=== PATIENT | female | born 1985 | race American Indian/Alaskan Native ===

== ENCOUNTER 2017-06-30 09:43 | Emergency (ER) | payer MEDICAID ==
[2017-06-30 10:30] VITALS: BP 136/79
--- NOTE | 2017-06-30 10:37 | Emergency Department Report ---
Chief Complaint: Medical Clearance Stated Complaint: POST OP LEAKING/SWELLING Time Seen by Provider: 06/30/17 10:33 - HPI History of Present Illness: Patient states she had on 06/12/17, and clayton removed on 06/18 and about 4-5 days later started to notice some drainage from incision site everyday ; has some swelling and pain over incision site also; denies fevers and N/V - ROS Review of Systems: Negative except for those stated in HPI - Exam Vital Signs: Vital Signs 06/30/17 10:22 Temperature 99.0 F Pulse Rate 105 H Respiratory 20 Rate Blood Pressure 136/79 O2 Sat by Pulse 98 Oximetry Physical Exam: NAD Abdomen - healing incision over pelvic area, area of edema and erythema over mid incision which is TTP, no active bleeding or drainage MSE screening note: Focused history and physical exam performed. Due to findings the following was ordered: bloodwork and wound culture Patient to be seen in Main ED by provider ED Disposition for MSE Condition: Stable
[2017-06-30 11:03] LABS: Basophils % (Auto) 1.1 % (0.0-1.8); Eosinophils % (Auto) 1.6 % (0.0-4.3); Hematocrit 31.8 % (30.3-42.9); Hemoglobin 10.2 gm/dl (10.1-14.3); Mean Corpuscular HGB Conc 32 % (30-34); Mean Corpuscular Hemoglobin 26 pg (28-32); Mean Corpuscular Volume 82 fl (79-97); Platelet Count 823 K/mm3 (140-440); Red Blood Count 3.86 M/mm3 (3.65-5.03); Red Cell Distribution Width 16.4 % (13.2-15.2)
[2017-06-30 11:22] LABS: Chloride 101.8 mmol/L (98-107); Potassium 3.9 mmol/L (3.6-5.0); Sodium 140 mmol/L (137-145)
[2017-06-30 11:35] LABS: BUN/Creatinine Ratio 18; Blood Urea Nitrogen 9 mg/dL (7-17); Calcium 9.2 mg/dL (8.4-10.2); Glucose 91 mg/dL (65-100)
[2017-06-30 11:47] LABS: Anion Gap 40 mmol/L
[2017-06-30 11:48] LABS: Carbon Dioxide 21 mmol/L (22-30)
[2017-06-30 13:24] LABS: Bilirubin,Urine NEG (Negative); Blood,Urine MOD (Negative); Ketones,Urine NEG (Negative); Leukocyte Esterase,Urine LG (Negative); Mucus,Urine 2+ /HPF; Nitrite,Urine NEG (Negative); Protein,Urine <15 mg/dL mg/dL (Negative)
== END 2017-06-30 13:35 | disposition left against medical advice (07) ==
LOC: ED 09:43
DX: Z53.21 Procedure and treatment not carried out due to patient leaving prior to being seen by health care provider (principal)
CPT/HCPCS: 36415; 80048; 81001; 85025

== ENCOUNTER 2017-07-01 09:13 | Emergency (ER) | payer MEDICAID ==
[2017-07-01 09:34] VITALS: BP 135/77
--- NOTE | 2017-07-01 09:48 | Emergency Department Report ---
- General Chief Complaint: Laceration/Recheck/Suture Stated Complaint: ABDOMINAL PAIN Time Seen by Provider: 07/01/17 09:43 Source: patient Mode of arrival: Ambulatory Limitations: No Limitations - History of Present Illness Initial Comments: Patient requesting evaluation of a possible infected scar from section 06/12/2017. She reports the clayton were removed 06/18/17, however she has experienced increase tenderness in the pelvic area Onset/Timin -: week(s) Location: other (pelvic) Place: home Patient Tetanus UTD: No Associated Symptoms: pain. denies: loss of feeling/numbness, suspect foreign body present, unable to move injured part, weakness followed by dizziness, nausea/vomiting, fever Treatments Prior to Arrival: other (pain medication) - Related Data Previous Rx's Medication Instructions Recorded Last Taken Type Nitrofurantoin Monohyd/M-Cryst 100 mg PO BID #14 capsule 07/01/17 Unknown Rx [Macrobid 100 mg Capsule] Allergies Allergy/AdvReac Type Severity Reaction Status Date / Time No Known Allergies Allergy Verified 06/12/17 12:29 ED Review of Systems ROS: Stated complaint: ABDOMINAL PAIN Other details as noted in HPI Constitutional: denies: chills, diaphoresis, fever, malaise, weakness Respiratory: denies: cough, orthopnea, shortness of breath, SOB with exertion, SOB at rest, stridor, wheezing Cardiovascular: denies: chest pain, palpitations, dyspnea on exertion, orthopnea , edema, syncope, paroxysmal nocturnal dyspnea Gastrointestinal: denies: abdominal pain, nausea, vomiting, diarrhea, constipation, hematemesis Genitourinary: dysuria, other (pelvic scar). denies: urgency, frequency, hematuria, discharge, abnormal menses, dyspareunia Skin: change in color (pelvic incision). denies: rash, lesions, change in hair/ nails, pruritus Neurological: denies: headache, weakness, numbness, paresthesias, confusion, abnormal gait, vertigo Psychiatric: denies: anxiety, depression Hematological/Lymphatic: denies: easy bleeding, easy bruising, swollen glands ED Past Medical Hx - Past Medical History Previous Medical History?: No Hx Hypertension: No Hx Congestive Heart Failure: No Hx Diabetes: No Hx Deep Vein Thrombosis: No Hx Renal Disease: No Hx Sickle Cell Disease: No Hx Seizures: No Hx Asthma: No Hx COPD: No Hx HIV: No - Surgical History Past Surgical History?: No - Social History Smoking Status: Never Smoker Substance Use Type: None - Medications Home Medications: Home Medications Medication Instructions Recorded Confirmed Last Taken Type Nitrofurantoin Monohyd/M-Cryst 100 mg PO BID #14 capsule 07/01/17 Unknown Rx [Macrobid 100 mg Capsule] ED Physical Exam - General Limitations: No Limitations General appearance: alert, in no apparent distress - Head Head exam: Present: atraumatic, normocephalic, normal inspection - Eye Eye exam: Present: normal appearance - ENT ENT exam: Present: normal exam, normal orophraynx, mucous membranes moist. Absent: mucous membranes dry - Neck Neck exam: Present: normal inspection, full ROM. Absent: tenderness, meningismus, lymphadenopathy, thyromegaly - Respiratory Respiratory exam: Present: normal lung sounds bilaterally. Absent: respiratory distress, wheezes, rales, rhonchi, stridor, chest wall tenderness, accessory muscle use, decreased breath sounds - Cardiovascular Cardiovascular Exam: Present: regular rate, normal rhythm, normal heart sounds. Absent: bradycardia, tachycardia, irregular rhythm, systolic murmur, diastolic murmur - GI/Abdominal GI/Abdominal exam: Present: soft, tenderness (suprapubic), normal bowel sounds. Absent: distended, guarding, rebound, rigid - Extremities Exam Extremities exam: Present: normal inspection, full ROM, normal capillary refill. Absent: tenderness, pedal edema, joint swelling, calf tenderness - Back Exam Back exam: Present: normal inspection, full ROM. Absent: tenderness, CVA tenderness (R), CVA tenderness (L), muscle spasm - Neurological Exam Neurological exam: Present: alert, oriented X3, CN II-XII intact, normal gait, reflexes normal. Absent: motor sensory deficit - Psychiatric Psychiatric exam: Present: normal affect, normal mood. Absent: depressed, agitated - Skin Skin exam: Present: warm, dry, intact, normal color, other (3 cm horizontal pelvic incision with eschar and edges well approximate. No erythema, fluctuance , induration or drainage noted) ED Course Vital Signs 07/01/17 09:31 Temperature 98.3 F Pulse Rate 93 H Respiratory 18 Rate Blood Pressure 135/77 O2 Sat by Pulse 98 Oximetry - Reevaluation(s) Reevaluation #1: 07/01/17 11:28 laboratories ordered ED Medical Decision Making - Lab Data Lab Results 07/01/17 Range/Units 09:49 Urine Color Yellow (Yellow) Urine Turbidity Clear (Clear) Urine pH 5.0 (5.0-7.0) Ur Specific [place] 1.025 (1.003-1.030) Urine Protein 30 mg/dl (Negative) mg/dL Urine Glucose (UA) Neg (Negative) mg/dL Urine Ketones Neg (Negative) mg/dL Urine Blood Lg (Negative) Urine Nitrite Neg (Negative) Ur Reducing Substances Not Reportable Urine Bilirubin Neg (Negative) Urine Ictotest Not Reportable Urine Urobilinogen 2.0 (<2.0) mg/dL Ur Leukocyte Esterase Lg (Negative) Urine WBC (Auto) 159.0 H (0.0-6.0) /HPF Urine RBC (Auto) > 182.0 (0.0-6.0) /HPF U Epithel Cells (Auto) 11.0 (0-13.0) /HPF Urine Bacteria (Auto) 1+ (Negative) /HPF Urine Mucus 2+ /HPF Urine HCG, Qual Negative (Negative) Vital Signs 07/01/17 09:31 Temperature 98.3 F Pulse Rate 93 H Respiratory 18 Rate Blood Pressure 135/77 O2 Sat by Pulse 98 Oximetry - Medical Decision Making During the course of ED, all other systems are unremarkable except for documentation in HPI. Patient's urinalysis was positive for leukocytes, therefore she was prescribed Macrobid and instructed to follow up with her Collection Support Specialist. She verbalized understanding - Differential Diagnosis Urinary Tract Infection, Scar Infection Critical care attestation.: If time is entered above; I have spent that time in minutes in the direct care of this critically ill patient, excluding procedure time. ED Disposition Clinical Impression: Urinary tract infection Qualifiers: Urinary tract infection type: site unspecified Hematuria presence: without hematuria Qualified Code(s): N39.0 - Urinary tract infection, site not specified Disposition: TO HOME OR SELFCARE Is pt being admited?: No Does the pt Need Aspirin: No Condition: Stable Instructions: Urinary Tract Infection in Women (ED) Additional Instructions: Take medication as directed. Follow up with your Collection Support Specialist this week. Keep the wound clean with antibacterial soap and dry Prescriptions: Nitrofurantoin Monohyd/M-Cryst [Macrobid 100 mg Capsule] 100 mg PO BID #14 capsule Referrals: PRIMARY CARE, [Primary Care Provider] - 3-5 Days MISHA DUNCAN DO [Staff Physician] - 3-5 Days RAMONA MORALES CNM [Advanced Practice Nurse] - 3-5 Days Forms: Work/School Release Form(ED) Time of Disposition: 10:43
[2017-07-01 10:19] LABS: Bacteria,Urine 1+ /HPF (Negative); Bilirubin,Urine NEG (Negative); Blood,Urine LG (Negative); Ketones,Urine NEG (Negative); Leukocyte Esterase,Urine LG (Negative); Mucus,Urine 2+ /HPF; Nitrite,Urine NEG (Negative)
[2017-07-01 10:21] LABS: RBC,Urine > 182.0 /HPF (0.0-6.0)
== END 2017-07-01 10:54 | disposition home or self-care (01) ==
LOC: ED 09:13
DX: N39.0 Urinary tract infection, site not specified (principal); R10.2 Pelvic and perineal pain
CPT/HCPCS: 81001; 81025; 99283

== ENCOUNTER 2017-07-01 21:27 | Emergency (ER) | payer MEDICAID ==
[2017-07-02 05:54] LABS: Eosinophils % (Auto) 2.6 % (0.0-4.3); Hematocrit 31.3 % (30.3-42.9); Hemoglobin 10.3 gm/dl (10.1-14.3); Mean Corpuscular HGB Conc 33 % (30-34); Mean Corpuscular Hemoglobin 27 pg (28-32); Mean Corpuscular Volume 83 fl (79-97); Platelet Count 728 K/mm3 (140-440); Red Blood Count 3.76 M/mm3 (3.65-5.03); Red Cell Distribution Width 16.3 % (13.2-15.2)
[2017-07-02 06:10] LABS: Anion Gap 18 mmol/L; BUN/Creatinine Ratio 20; Blood Urea Nitrogen 10 mg/dL (7-17); Calcium 9.7 mg/dL (8.4-10.2); Carbon Dioxide 25 mmol/L (22-30); Chloride 102.6 mmol/L (98-107); Glucose 104 mg/dL (65-100); Potassium 3.9 mmol/L (3.6-5.0); Sodium 142 mmol/L (137-145)
--- NOTE | 2017-07-02 12:41 | Emergency Department Report ---
HPI - General Chief Complaint: Laceration/Recheck/Suture Time Seen by Provider: 07/02/17 12:28 - HPI HPI: Room 7 The patient is a 31-year-old female presenting with a chief complaint of wound dehiscence. Patient status post a by Dr. Upton 06/12/2017. The patient states last night she noticed swelling at the surgical site and came to the hospital for evaluation. The patient was evaluated and discharged home with antibiotics for UTI. The patient states when she went home swelling opened up and drained a serosanguineous fluid. The patient's wound opened up and this prompted the patient come back to the ED for evaluation. Patient denies any history of fever. Patient denies any other pain outside of her usual postop pain. The patient states she is bottle and breast-feeding her Location: Abdominal surgical site Duration: [See above] Quality: Appropriate postop soreness Severity: Moderate Modifying factors: [see above] Context: [see above] Mode of transportation: Unknown ED Past Medical Hx - Surgical History Additional Surgical History: C/S - Family History Family history: no significant - Social History Smoking Status: Never Smoker Substance Use Type: None (denies illicit drug use) - Medications Home Medications: Home Medications Medication Instructions Recorded Confirmed Last Taken Type Nitrofurantoin Monohyd/M-Cryst 100 mg PO BID #14 capsule 07/01/17 Unknown Rx [Macrobid 100 mg Capsule] Cephalexin [Keflex] 500 mg PO Q6HR #28 capsule 07/02/17 Unknown Rx ED Review of Systems ROS: Stated complaint: POST C SECTION OPEN Other details as noted in HPI Constitutional: denies: fever Eyes: denies: as per HPI ENT: denies: throat pain Cardiovascular: denies: chest pain Gastrointestinal: abdominal pain Genitourinary: denies: dysuria Musculoskeletal: denies: back pain Skin: other ( wound dehiscence) Neurological: denies: headache Physical Exam - Physical Exam Vital Signs: Vital Signs 07/01/17 07/01/17 21:30 21:35 Temperature 98.2 F 98.2 F Pulse Rate 95 H 95 H Respiratory 18 18 Rate Blood Pressure 140/89 140/89 O2 Sat by Pulse 98 98 Oximetry Physical Exam: GENERAL: The patient is well-developed well-nourished female lying on stretcher not appearing to be in acute distress. [] HEENT: Normocephalic. Atraumatic. Extraocular motions are intact. Patient has moist mucous membranes. NECK: Supple. Trachea midline CHEST/LUNGS: Clear to auscultation. There is no respiratory distress noted. HEART/CARDIOVASCULAR: Regular. There is no tachycardia. There is no gallop rub or murmur. ABDOMEN: Abdomen is with appropriate postop tenderness. Patient has normal bowel sounds. There is no abdominal distention. SKIN: There is no rash. There is no edema. There is no diaphoresis. The right lateral aspect of the patient's side has wound dehiscence of approximately 6 cm in length and 1 cm in width at its widest point. The dehiscence is superficial NEURO: The patient is awake, alert, and oriented. The patient is cooperative. The patient has normal speech MUSCULOSKELETAL: There is no evidence of acute injury. ED Course Vital Signs 07/01/17 07/01/17 21:30 21:35 Temperature 98.2 F 98.2 F Pulse Rate 95 H 95 H Respiratory 18 18 Rate Blood Pressure 140/89 140/89 O2 Sat by Pulse 98 98 Oximetry - Consultations Consultation #1: 07/02/17 12:37 Dr Upton paged 07/02/17 13:[address] Upton- recommends placing Betadine on gauze and a dressing over the wound dehiscence initiating antibiotics for staph coverage. We'll like to see the patient in the office 07/04/2017 ED Medical Decision Making - Lab Data Result diagrams: 07/02/17 05:41 07/02/17 05:41 Laboratory Tests 07/02/17 07/02/17 05:41 05:41 WBC 9.0 RBC 3.76 Hgb 10.3 Hct 31.3 MCV 83 MCH 27 L MCHC 33 RDW 16.3 H Plt Count 728 H Lymph % (Auto) 24.3 [place] % (Auto) 6.1 Eos % (Auto) 2.6 Baso % (Auto) 1.0 Lymph # 2.2 [place] # 0.5 Eos # 0.2 Baso # 0.1 Seg Neutrophils % 66.0 Seg Neutrophils # 5.9 Sodium 142 Potassium 3.9 Chloride 102.6 Carbon Dioxide 25 Anion Gap 18 BUN 10 Creatinine 0.5 L Estimated GFR > 60 BUN/Creatinine Ratio 20 Glucose 104 H Calcium 9.7 - Differential Diagnosis wound dehiscence Critical care attestation.: If time is entered above; I have spent that time in minutes in the direct care of this critically ill patient, excluding procedure time. ED Disposition Clinical Impression: Wound dehiscence Disposition: DC-01 TO HOME OR SELFCARE Is pt being admited?: No Does the pt Need Aspirin: No Condition: Stable Instructions: Wound Dehiscence (ED) Additional Instructions: Return to the emergency department immediately should you develop worsening symptoms, fever, inability to tolerate food or liquid or any other concerns. Prescriptions: Cephalexin [Keflex] 500 mg PO Q6HR #28 capsule Referrals: PRIMARY CAREMD [Primary Care Provider] - 3-5 Days BRITTANY UPTON MD [Staff Physician] - 07/04/17 Time of Disposition: 13:03
[2017-07-02 13:25] VITALS: BP 138/78
== END 2017-07-02 13:25 | disposition home or self-care (01) ==
LOC: ED 21:27
DX: T81.30XA Disruption of wound, unspecified, initial encounter (principal); Y83.8 Other surgical procedures as the cause of abnormal reaction of the patient, or of later complication, without mention of misadventure at the time of the procedure; Y92.89 Other specified places as the place of occurrence of the external cause
CPT/HCPCS: 36415; 80048; 85025; 99283